=== PATIENT | male | born 1960 | race Caucasian/White ===

== ENCOUNTER 2025-02-01 11:26 | Day surgery (SDC) | payer BC ==
[2025-02-01] MEDS: Lidocaine 1% PF 2 ML SDV INJECT SCH (07:22)
[2025-02-01] MEDS: Tetracaine HCl/PF 0.5% 4 ML Bottle EYEBOTH SCH (07:22)
[2025-02-01] MEDS: Polymyxin B/Trimethoprim 10 ML Bottle EYELF SCH (07:23)
[2025-02-01] MEDS: Cefuroxime 10 MG/ML SYRINGE EYELF SCH (07:23)
[2025-02-01] MEDS: Pilocarpine 4% Ophth Soln 15 ML Bot EYELF SCH (07:23)
[2025-02-01] MEDS: Tropicamide 1% Ophth Soln 3 ML Bottle EYELF SCH (11:54)
== END 2025-02-01 13:45 | disposition home or self-care (01) ==
LOC: JD.SDS 11:26
PROVIDERS: ATTEND Ophthalmology
DX: H25.813 Combined forms of age-related cataract, bilateral (principal); H21.81 Floppy iris syndrome; H40.013 Open angle with borderline findings, low risk, bilateral; H11.823 Conjunctivochalasis, bilateral; H11.153 Pinguecula, bilateral; H02.831 Dermatochalasis of right upper eyelid; H02.834 Dermatochalasis of left upper eyelid; H57.813 Brow ptosis, bilateral; H35.373 Puckering of macula, bilateral; I10 Essential (primary) hypertension; Z79.899 Other long term (current) drug therapy; Z79.890 Hormone replacement therapy
CPT/HCPCS: 66982; A9270; J0697; J3490

== ENCOUNTER 2025-03-08 12:34 | Day surgery (SDC) | payer BC ==
[2025-03-08] MEDS: Cefuroxime 10 MG/ML SYRINGE EYERT SCH (07:37)
[2025-03-08] MEDS: Lidocaine 1% PF 2 ML SDV INJECT SCH (07:37)
[2025-03-08] MEDS: Pilocarpine 4% Ophth Soln 15 ML Bot EYERT SCH (07:37)
[2025-03-08] MEDS: Tetracaine HCl/PF 0.5% 4 ML Bottle EYEBOTH SCH (07:37)
[2025-03-08] MEDS: Polymyxin B/Trimethoprim 10 ML Bottle EYERT SCH (07:38)
[2025-03-08] MEDS: Tropicamide 1% Ophth Soln 3 ML Bottle EYERT SCH (12:55)
== END 2025-03-08 14:32 | disposition home or self-care (01) ==
LOC: JD.SDS 12:34
PROVIDERS: ATTEND Ophthalmology
DX: H25.811 Combined forms of age-related cataract, right eye (principal); H21.81 Floppy iris syndrome; H21.40 Pupillary membranes, unspecified eye; H40.031 Anatomical narrow angle, right eye; H52.31 Anisometropia; I10 Essential (primary) hypertension; Z96.1 Presence of intraocular lens; Z79.899 Other long term (current) drug therapy; Z79.890 Hormone replacement therapy
CPT/HCPCS: A9270-GY; J0697; J3490; V2632